=== PATIENT | male | born 2000 | race Caucasian/White ===

== ENCOUNTER 2020-08-22 04:06 | Emergency (ER) | payer OTHER ==
[~2020-08-22] VITALS: Ht 177.8 cm; Wt 72.6 kg
[2020-08-22 06:41] VITALS: BP 131/76
== END 2020-08-22 08:59 | disposition home or self-care (01) ==
LOC: ER 04:06
DX: R06.02 Shortness of breath (principal); R05 Cough; Z20.828 Contact with and (suspected) exposure to other viral communicable diseases
CPT/HCPCS: 36415; 71045; 87426; 87804